=== PATIENT | female | born 1965 | race Caucasian/White ===

== ENCOUNTER 2018-12-12 11:33 | Outpatient (CLI) | payer MEDICAID | END 2018-12-12 11:34 | disposition EMS.NT | LOC: EMS 11:33 | PROVIDERS: ATTEND Surgery | DX: R55 Syncope and collapse (principal) ==

== ENCOUNTER 2019-09-05 11:53 | Outpatient (CLI) | payer MEDICAID | END 2019-09-05 11:54 | disposition critical access hospital (66) | LOC: EMS 11:53 | PROVIDERS: ATTEND Surgery | DX: R41.0 Disorientation, unspecified (principal); R51 Headache; R26.9 Unspecified abnormalities of gait and mobility; W18.39XA Other fall on same level, initial encounter | CPT/HCPCS: A0425; A0429; A0999 ==

== ENCOUNTER 2019-09-05 12:15 | Emergency (ER) | payer MEDICAID ==
[2019-09-05] MEDS ORDERED: MORPHINE 2 MG/ML CARPUJECT IVP STA (12:21)
[2019-09-05] MEDS ORDERED: SODIUM CHLORIDE 0.9% 1,000 ML IV STA (12:21)
--- NOTE | 2019-09-05 12:29 | ED Physician Documentation ---
History of Present Illness - Stated complaint Stated Complaint: fall - Chief complaint Chief Complaint: Trauma Hd/Nk - History obtained from History obtained from: Patient, EMS - History of Present Illness Timing: How many days ago (4) Pain level max: 7 Pain level now: 6 - Additonal information Additional information: 54-year-old female presents to the emergency department after a trip and fall 4 days ago, she hit her head on a piece of furniture, lost consciousness. Unknown how long she was unconscious for. No chest pain. No palpitations. Has occasional numbness and tingling to the bilateral hands, this is a chronic ongoing issue. She has had an increasing headache since that time and her sister states that she has been confused. She is not on blood thinners. Nothing makes it better or worse. EMS was called today and placed her in a cervical collar and brought her to the emergency department. No vomiting. No seizure activity. She did not have a syncopal event, rather she tripped, fell and then struck her head and lost consciousness. Review of Systems Ten Systems: 10 systems reviewed and negative Constitutional: denies: Fever, Chills Nose: denies: Rhinorrhea / runny nose, Congestion Throat: denies: Sore throat Cardiac: denies: Chest pain / pressure, Palpitations Respiratory: denies: Dyspnea, Cough GI: denies: Nausea, Vomiting, Diarrhea Skin: denies: Rash Musculoskeletal: reports: Neck pain. denies: Back pain Neurologic: reports: Headache PD PAST MEDICAL HISTORY - Past Medical History Past Medical History: Yes Cardiovascular: Hypertension, High cholesterol - Past Surgical History Past Surgical History: No - Allergies Allergies/Adverse Reactions: Allergies Allergy/AdvReac Type Severity Reaction Status Date / Time Sulfa (Sulfonamide Allergy Unknown Verified 09/05/19 12:31 Antibiotics) - Living Situation Living Situation: reports: With family Living Arrangement: reports: At home - Social History Does the pt have substance abuse?: No - Family History Family history: reports: Non contributory PD ED PE NORMAL - Vitals Vital signs reviewed: Yes - General General: Alert and oriented X 3, No acute distress - HEENT HEENT: PERRL, EOMI, Moist mucous membranes, Pharynx benign, Other (Diffuse tenderness around the scalp. No hematomas. No palpable skull fractures.) - Neck Neck: Other (Mild midline tenderness. Cervical collar in place. No step-off or deformity.) - Cardiac Cardiac: RRR, Strong equal pulses - Respiratory Respiratory: No respiratory distress, Clear bilaterally - Abdomen Abdomen: Soft, Non tender, Non distended - Back Back: No spinal TTP - Derm Derm: Warm and dry - Extremities Extremities: No deformity, Normal ROM s pain, No edema - Neuro Neuro: Alert and oriented X 3, project scheduler 2-12 intact, No motor deficit, No sensory deficit, Normal speech Eye Opening: Spontaneous Motor: Obeys Commands Verbal: Oriented GCS Score: 15 - Psych Psych: Normal mood, Normal affect Results - Vitals Vitals: Vital Signs - 24 hr 09/05/19 09/05/19 12:05 13:13 Temperature 37.2 C Heart Rate 72 102 H Respiratory 16 18 Rate Blood Pressure 154/83 H 140/87 H O2 Saturation 100 100 Oxygen O2 Source Room air Oxygen Flow Rate 100 - EKG (time done) 1221 Rate: Rate (enter#) (70) Rhythm: NSR [place]: Normal Intervals: Normal HI QRS: Normal Ischemia: Normal ST segments, Q waves (III, aVF) - Labs Labs: Laboratory Tests 09/05/19 09/05/19 09/05/19 12:45 12:45 12:45 WBC 6.3 RBC 5.09 Hgb 15.9 Hct 46.1 MCV 90.6 MCH 31.2 H MCHC 34.5 RDW 12.0 Plt Count 302 MPV 9.7 Neut # (Auto) 3.1 Lymph # (Auto) 2.2 Travis # (Auto) 0.4 Eos # (Auto) 0.6 Baso # (Auto) 0.1 Absolute Nucleated RBC 0.00 Nucleated RBC % 0.0 Sodium 140 Potassium 3.8 Chloride 107 Carbon Dioxide 24 Anion Gap 9.0 BUN 14 Creatinine 0.9 Estimated GFR (MDRD) 65 L Glucose 94 Calcium 9.3 Total Bilirubin 0.8 AST 21 ALT 38 Alkaline Phosphatase 60 Troponin I High Sens < 2.3 L Total Protein 6.7 Albumin 4.2 Globulin 2.5 Albumin/Globulin Ratio 1.7 Lipase 23 TSH Salicylates Acetaminophen Ethyl Alcohol 09/05/19 09/05/19 12:45 12:45 WBC RBC Hgb Hct MCV MCH MCHC RDW Plt Count MPV Neut # (Auto) Lymph # (Auto) Travis # (Auto) Eos # (Auto) Baso # (Auto) Absolute Nucleated RBC Nucleated RBC % Sodium Potassium Chloride Carbon Dioxide Anion Gap BUN Creatinine Estimated GFR (MDRD) Glucose Calcium Total Bilirubin AST ALT Alkaline Phosphatase Troponin I High Sens Total Protein Albumin Globulin Albumin/Globulin Ratio Lipase TSH 2.00 Salicylates < 6.0 Acetaminophen < 10 L Ethyl Alcohol < 5.0 - Rads (name of study) CT head Radiology: Prelim report reviewed, EMP read contemporaneously, See rad report (No acute abnormality) CT cervical spine Radiology: Prelim report reviewed, EMP read contemporaneously, See rad report (no acute abnormality) PD MEDICAL DECISION MAKING - ED course Complexity details: reviewed results, re-evaluated patient, considered differential, d/w patient ED course: No acute findings on CT of the head or cervical spine. No acute findings on blood testing. She refuses urinalysis here. She states she is following up with her doctor in 2 days. She would like to go home at this time. Pain well controlled. Patient is well-appearing, nontoxic. Afebrile. Alert, oriented x3. Ambulating under her own power. Patient counseled regarding signs and symptoms for which I believe and urgent re-evaluation would be necessary. Patient with good understanding of and agreement to plan and is comfortable going home at this time This document was made in part using voice recognition software. While efforts are made to proofread this document, sound alike and grammatical errors may occur. Departure - Departure Disposition: 01 Home, Self Care Clinical Impression: Concussion Qualifiers: Encounter type: initial encounter Loss of consciousness presence/duration: with LOC of unspecified duration Qualified Code(s): S06.0X9A - Concussion with loss of consciousness of unspecified duration, initial encounter Condition: Good Instructions: ED Concussion Follow-Up: your,doctor on [Other] Comments: Return if you worsen. Follow up with your doctor on as scheduled. Discharge Date/Time: 09/05/19 16:02
[2019-09-05 12:48] LABS: BASOPHILS # (AUTO) 0.1 10^3/uL (0.0-0.1); BASOPHILS % (AUTO) 1.3 %; EOSINOPHILS # (AUTO) 0.6 10^3/uL (0.0-0.7); EOSINOPHILS % (AUTO) 9.1 %; HGB - HEMOGLOBIN 15.9 g/dL (12.0-16.0); LYMPHOCYTES # (AUTO) 2.2 10^3/uL (1.5-3.5); LYMPHOCYTES % (AUTO) 34.2 %; MEAN CORPUSCULAR HEMOGLOBIN 31.2 pg (27.0-31.0); MEAN CORPUSCULAR HGB CONC 34.5 g/dL (32.0-36.0); MEAN CORPUSCULAR VOLUME 90.6 fL (81.0-99.0); MEAN PLATELET VOLUME 9.7 fL (7.9-10.8); MONOCYTES # (AUTO) 0.4 10^3/uL (0.0-1.0); MONOCYTES % (AUTO) 6.6 %; NEUTROPHILS # (AUTO) 3.1 10^3/uL (1.5-6.6); NEUTROPHILS % (AUTO) 48.5 %; PLT - PLATELET COUNT 302 10^3/uL (130-450); RED BLOOD COUNT 5.09 10^6/uL (4.20-5.40); WHITE BLOOD COUNT 6.3 x10^3/uL (4.8-10.8)
[2019-09-05 13:04] LABS: ALBUMIN 4.2 g/dL (3.2-5.5); ALBUMIN/GLOBULIN RATIO 1.7 (1.0-2.2); BILIRUBIN,TOTAL 0.8 mg/dL (0.2-1.0); CALCIUM 9.3 mg/dL (8.5-10.3); CREATININE 0.9 mg/dL (0.4-1.0); TOTAL PROTEIN 6.7 g/dL (6.7-8.2)
[2019-09-05 13:14] VITALS: BP 140/87
--- NOTE | 2019-09-05 13:22 | CT Report ---
PROCEDURE: HEAD WO INDICATIONS: fall, headache x 3 days TECHNIQUE: Noncontrast 4.5 mm thick angled axial sections acquired from the foramen magnum to the vertex. For r adiation dose reduction, the following was used: automated exposure control, adjustment of mA and/or kV according to patient size. COMPARISON: None. FINDINGS: Image quality: Excellent. CSF spaces: Basal cisterns are patent. No extra-axial fluid collections. Ventricles are normal in size and shape. Brain: No midline shift. No intracranial masses or hemorrhage. [place]-white matter interface is norm al. Skull and face: Calvarium and visualized facial bones are intact, without suspicious lesions. Sinuses: Visualized sinuses and mastoids are clear. IMPRESSION: CT head without acute intracranial abnormalities or acute calvarial fractures. Reviewed by: Levar Gray MD on 09/05/2019 1:20 PM PDT Approved by: Levar Gray MD on 09/05/2019 1:20 PM PDT Station ID: [id number]
--- NOTE | 2019-09-05 13:25 | CT Report ---
PROCEDURE: CERVICAL SPINE WO INDICATIONS: fall, neck pain x 3 days TECHNIQUE: Noncontrast 3 mm thick sections acquired from the skull base to the T4 level. Sagittal and coronal r eformats were then constructed. For radiation dose reduction, the following was used: automated exp osure control, adjustment of mA and/or kV according to patient size. COMPARISON: Correlation is made with the accompanying head CT 09/05/2019 FINDINGS: Image quality: Excellent. Bones: No fractures or dislocations. Visualized superior ribs are intact. Degenerative changes are seen, which are most prominent inferiorly, with at least moderate disc space narrowing at C5-C6 and moderate disc space narrowing at C6-C7. Partially bridging endplate osteophyt es can be seen C4-C7. Milder degenerative changes are seen elsewhere. Soft tissues: Prevertebral soft tissues are normal in thickness. No paravertebral hematomas. No ap ical pneumothoraces. Thyroidectomy changes are seen. IMPRESSION: Lower cervical spine degenerative changes are seen, without an acute fracture identified. Incidental note is made of: Thyroidectomy Reviewed by: Jimmie Larkin MD on 09/05/2019 12:24 PM AKDT Approved by: Jimmie Larkin MD on 09/05/2019 12:24 PM AKDT Station ID: [id number]
[2019-09-05 14:11] LABS: ACETAMINOPHEN < 10 ug/mL (10-30); SALICYLATE < 6.0 mg/dL
[2019-09-05] MEDS ORDERED: KETOROLAC 30 MG/ML VIAL IVP STA (15:11)
== END 2019-09-05 16:02 | disposition home or self-care (01) ==
LOC: EDUNIT# → EDBD → ED 12:15
DX: S06.0X9A Concussion with loss of consciousness of unspecified duration, initial encounter (principal); W01.190A Fall on same level from slipping, tripping and stumbling with subsequent striking against furniture, initial encounter; I10 Essential (primary) hypertension
CPT/HCPCS: 36415; 70450; 72125; 80053; 80307; 80320; 80329; 83690; 84443; 84484; 85025; 93005; 96361; 96374; 96375; 99284

== ENCOUNTER 2019-10-13 18:52 | Outpatient (CLI) | payer MEDICAID | END 2019-10-13 18:53 | disposition home or self-care (01) | LOC: COV 18:52 | PROVIDERS: ATTEND Family Medicine | DX: R50.9 Fever, unspecified (principal); M79.10 Myalgia, unspecified site; R53.83 Other fatigue; R19.7 Diarrhea, unspecified; R11.2 Nausea with vomiting, unspecified; Z20.828 Contact with and (suspected) exposure to other viral communicable diseases ==

== ENCOUNTER 2020-10-15 23:33 | Outpatient (CLI) | payer MEDICAID | END 2020-10-15 23:34 | disposition critical access hospital (66) | LOC: EMS 23:33 | DX: R29.898 Other symptoms and signs involving the musculoskeletal system (principal); R29.810 Facial weakness; R51.9 Headache, unspecified; R53.1 Weakness | CPT/HCPCS: A0425; A0429; A0999 ==

== ENCOUNTER 2020-10-15 23:48 | Emergency (ER) | payer MEDICAID ==
--- NOTE | 2020-10-15 23:54 | ED Physician Documentation ---
History of Present Illness - Stated complaint Stated Complaint: LT SIDE WEAKNESS - Chief complaint Chief Complaint: Neuro - History obtained from History obtained from: Patient, EMS - Additonal information Additional information: 55-year-old woman with history of stage IV metastatic breast cancer stage currently in remission per her report, not with known brain mets, also s/p thyroidectomy on synthroid, p/w sudden onset R Facial droop and left upper extremity and left lower extremity weakness and sensory loss. Started at 2100. code stroke called MANAGER OF PROGRAM. history limited by patient acuity. Review of Systems Unable to obtain: Other (ROS limited by patient acuity) PD PAST MEDICAL HISTORY - Past Medical History Cardiovascular: Hypertension, High cholesterol - Past Surgical History Past Surgical History: No - Allergies Allergies/Adverse Reactions: Allergies Allergy/AdvReac Type Severity Reaction Status Date / Time Sulfa (Sulfonamide Allergy Unknown Verified 09/05/19 12:31 Antibiotics) - Social History Does the pt have substance abuse?: No PD ED PE NORMAL - Vitals Vital signs reviewed: Yes - General General: Alert and oriented X 3, No acute distress - HEENT HEENT: Atraumatic, PERRL, EOMI, Other (preferential R gaze deviation) - Neck Neck: Supple, no meningeal sign - Cardiac Cardiac: RRR - Respiratory Respiratory: No respiratory distress, Clear bilaterally - Derm Derm: Normal color, Warm and dry - Extremities Extremities: No deformity - Neuro Neuro: Alert and oriented X 3, Other (significant R lower facial droop. LUE complete sensory loss and paralysis. LLE drift, unable to resist gravity. mild dysarthria. R gaze deviation. CN2-12 otherwise intact. (NIHSS 1-gaze palsy, 2- facial paralysis, 4-LUE, 2-LLE, 2-sensation, 1-dysarthria). total NIHSS 10) - Psych Psych: Normal mood, Normal affect Results - Vitals Vitals: Vital Signs - 24 hr 10/15/20 23:50 Temperature 36 C L Heart Rate 74 Respiratory 20 Rate Blood Pressure 187/129 H O2 Saturation 98 Oxygen O2 Source Room air PD MEDICAL DECISION MAKING - ED course ED course: 11:50pm - patient with significant R facial droop, LUE/LLE weakness, slurred speech. sent straight to CT for noncon and CT angio. telestroke consulted. likely tpa candidate. LSN 2100. 11:57pm- d/w Dr. Collin Huitron in regards to symptoms and he agrees she may be a good tpa candidate. he will eval via telestroke. 12:04am - patient with R sided intracranial bleeding. not a tpa candidate based on this. d/w our [facility] who will work on transfer for possible neurosurgical intervention. 12:08am - rejected by kaya maharaj. no capability right now. 12:10am- d/w [facility] - will be transferred to stroke neurology then neurosurg. patient still with complete LUE sensory and motor loss. significant LLE drift and R facial droop. d/w Dr. Mead - BP goal 160/90. will administer nicardipine. elevate HOB 30 degrees. 12:30am- [facility] on standby. awaiting [facility]. Departure - Departure Disposition: 02 Transfer Acute Care Hosp Clinical Impression: Intraparenchymal hemorrhage of brain, Subarachnoid hemorrhage Condition: Stable
[2020-10-16] MEDS ORDERED: NICARDIPINE HCL 25 MG in SODIUM CHLORIDE 0.9% 240 ML IV STA (00:15)
[2020-10-16] MEDS ORDERED: NICARDIPINE HCL 25 MG/10 ML VIAL IV ONE (00:28)
[2020-10-16 00:38] LABS: BASOPHILS # (AUTO) 0.1 10^3/uL (0.0-0.1); BASOPHILS % (AUTO) 0.7 %; EOSINOPHILS # (AUTO) 0.1 10^3/uL (0.0-0.7); EOSINOPHILS % (AUTO) 0.9 %; HCT - HEMATOCRIT 50.4 % (37.0-47.0); HGB - HEMOGLOBIN 17.3 g/dL (12.0-16.0); LYMPHOCYTES # (AUTO) 1.6 10^3/uL (1.5-3.5); LYMPHOCYTES % (AUTO) 11.9 %; MEAN CORPUSCULAR HEMOGLOBIN 31.8 pg (27.0-31.0); MEAN CORPUSCULAR HGB CONC 34.3 g/dL (32.0-36.0); MEAN CORPUSCULAR VOLUME 92.6 fL (81.0-99.0); MEAN PLATELET VOLUME 9.1 fL (7.9-10.8); MONOCYTES # (AUTO) 0.7 10^3/uL (0.0-1.0); MONOCYTES % (AUTO) 5.5 %; NEUTROPHILS # (AUTO) 10.9 10^3/uL (1.5-6.6); NEUTROPHILS % (AUTO) 80.9 %; PLT - PLATELET COUNT 299 10^3/uL (130-450); RED BLOOD COUNT 5.44 10^6/uL (4.20-5.40); RED CELL DISTRIBUTION WIDTH 13.3 % (12.0-15.0); WHITE BLOOD COUNT 13.5 x10^3/uL (4.8-10.8)
[2020-10-16 00:51] LABS: ALBUMIN 5.1 g/dL (3.2-5.5); ALBUMIN/GLOBULIN RATIO 1.7 (1.0-2.2); BILIRUBIN,TOTAL 1.6 mg/dL (0.2-1.0); CALCIUM 9.1 mg/dL (8.5-10.3); POTASSIUM 3.2 mmol/L (3.5-5.0); TOTAL PROTEIN 8.1 g/dL (6.7-8.2)
[2020-10-16] MEDS ORDERED: fentaNYL 100 MCG/2 ML VIAL IVP STA (00:53)
[2020-10-16 01:05] LABS: INR 1.1 (0.8-1.2)
[2020-10-16 01:35] LABS: CORONAVIRUS 229E-RESP PCR NOT DETECTED; CORONAVIRUS HKU1-RESP PCR NOT DETECTED; CORONAVIRUS NL63-RESP PCR NOT DETECTED; CORONAVIRUS OC43-RESP PCR NOT DETECTED; HUMAN METAPNEUMOVIRUS NOT DETECTED; INFLUENZA A- RESP PCR PANEL NOT DETECTED; INFLUENZA B - RESP PCR PANEL NOT DETECTED; PARAINFLUENZA VIRUS 1 NOT DETECTED; PARAINFLUENZA VIRUS 2 NOT DETECTED; PARAINFLUENZA VIRUS 3 NOT DETECTED; PARAINFLUENZA VIRUS 4 NOT DETECTED; RHINOVIRUS/ENTEROVIRUS NOT DETECTED; RSV- RESP PCR PANEL NOT DETECTED; SARS-CoV-2 -RESP PCR PANEL NOT DETECTED
[2020-10-16 01:35] LABS: PARTIAL THROMBOPLASTIN TIME 26.7 secs (24.9-33.3)
[2020-10-16 01:36] VITALS: BP 166/110
[2020-10-16 01:36] LABS: B. PARAPERTUSSIS- RESP PCR PAN NOT DETECTED; B. PERTUSSIS- RESP PCR PANEL NOT DETECTED; C. PNEUMONIAE- RESP PCR PANEL NOT DETECTED; M. PNEUMONIAE- RESP PCR PANEL NOT DETECTED
--- NOTE | 2020-10-16 08:16 | XRAY Report ---
PROCEDURE: Chest 1 View X-Ray INDICATIONS: Chest pain TECHNIQUE: One view of the chest was acquired. COMPARISON: None. FINDINGS: Surgical changes and devices: Surgical clips in the left axillary region. Lungs and pleura: No pleural effusions or pneumothorax. Lungs are clear. Mediastinum: Mediastinal contours appear normal. Heart size is normal. Bones and chest wall: No suspicious bony lesions. Overlying soft tissues appear unremarkable. IMPRESSION: No acute cardiopulmonary process demonstrated radiographically. Reviewed by: Otis Moncada MD on 10/16/2020 8:15 AM PDT Approved by: Otis Moncada MD on 10/16/2020 8:15 AM PDT Station ID: [id number]
--- NOTE | 2020-10-16 09:27 | CT Report ---
PROCEDURE: ANGIO HEAD W/WO INDICATIONS: code stroke CONTRAST: No IV contrast administered TECHNIQUE: Precontrast 4.5 mm thick angled axial sections acquired from the foramen magnum to the vertex. Marc nal and sagittal reformatted images were generated and reviewed. COMPARISON: 09/05/[address] FINDINGS: Image quality: Excellent. Anterior circulation: Intracranial internal carotid arteries are normal in size and flow. The flow within the paired anterior cerebral arteries is normal and symmetric. The flow within the middle cer ebral arteries is normal and symmetric. The anterior communicating artery is seen. No aneurysms are seen. Posterior circulation: Visualized portions of the vertebral arteries demonstrate normal caliber, and join to form a normal appearing basilar artery. Flow within the posterior cerebral arteries is norm al and symmetric. No aneurysms are seen. Brain: There is an acute intraparenchymal hemorrhage in the right frontal and parietal lobes. The hem orrhage measures approximately 4.0 x 4.9 x 5.9 cm maximum dimension. There is adjacent vasogenic allison a. Regional mass effect manifests as sulcal effacement, partial effacement of the right lateral ventr icle, and approximately 4 mm right to left midline shift measured at the septum pellucidum. There is also scattered subarachnoid hemorrhage in the right frontal and parietal convexities, as well as a fe w small subarachnoid hemorrhages in the left cerebral convexity. No intraventricular hemorrhage ident ified. Basilar cisterns are patent. No findings of acute obstructive hydrocephalus. Skull and face: Calvarium and facial bones appear intact, without suspicious lesions. Sinuses: Visualized sinuses and mastoids are clear. IMPRESSION: Large acute right frontoparietal intraparenchymal hemorrhage with associated moderate mass effect inc luding midline shift. Neurosurgical consultation recommended. Findings were discussed with Nadir small RN on 10/16/2020. No significant change from preliminary report. Reviewed by: Otis Moncada MD on 10/16/2020 9:26 AM PDT Approved by: Otis Moncada MD on 10/16/2020 9:26 AM PDT Station ID: [id number]
== END 2020-10-16 01:20 | disposition short-term general hospital (02) ==
LOC: EDUNIT# → ED 23:48
DX: I62.9 Nontraumatic intracranial hemorrhage, unspecified (principal); I60.8 Other nontraumatic subarachnoid hemorrhage; G81.94 Hemiplegia, unspecified affecting left nondominant side; R29.810 Facial weakness; R47.1 Dysarthria and anarthria; R29.710 NIHSS score 10; Z20.822 Contact with and (suspected) exposure to COVID-19; I10 Essential (primary) hypertension; Z85.3 Personal history of malignant neoplasm of breast
CPT/HCPCS: 0202U; 36415; 70496; 71045; 80053; 80320; 83690; 84484; 85025; 85610; 85730; 93005; 96365; 96375; 99285